=== PATIENT | male | born 1995 | race Caucasian/White ===

== ENCOUNTER 2024-02-08 20:20 | Emergency (ER) | payer SELFPAY ==
[2024-02-08 20:21] VITALS: BP 160/140; PULSE 96; RESP 21; TEMP 36.7; O2SAT 97; O2SAT 98; BMI 22.1
--- NOTE | 2024-02-08 20:33 | EX.ED.DYSGE1 ---
HPI <CHELSY Marquez - Last Filed: 02/08/24 21:46> History of Present Illness Chief Complaint: Allergic Reaction Narrative Narrative: Patient is a 28-year-old male with no significant medical history, uses marijuana occasionally last use today around 6 PM, was on a hike with his girlfriend. Patient was on the way back when he stepped on a hornets nest, got stung multiple times. Patient states he immediately started having itching sensations throughout his whole body, his girlfriend noticed his eyelids were swelling, he thought he felt short of breath, and he was able to call the ambulance. The ambulance on the way here provided them with 2 doses of IM epi, IV Solu-Medrol 125 mg, 25 mg of Benadryl. Patient also received some breathing treatments. On reevaluation, the patient arrives here shaky however is stable. PFSH <CHELSY Marquez - Last Filed: 02/08/24 21:46> PFS Medical History no medical history Home Medications ?Medication ?Instructions ?Recorded ?Last Taken ?Type epinephrine 0.3 mg/0.3 mL 0.3 mg (0.3 mL) IM Q4H PRN 02/08/24 Unknown Rx injection, auto-injector anaphylaxis #2 ea prednisone 50 mg tablet 50 mg PO DAILY #4 tabs 02/08/24 Unknown Rx Allergy/AdvReac Type Severity Reaction Status Date / Time bee venom protein (honey Allergy Severe Anaphylaxis Verified 02/08/24 20:27 bee) (bees) Family History no significant family his Surgical History no surgical history Social History Smoking Status: Current every day smoker tobacco type: cigarettes and e-cigarettes ROS <CHELSY Marquez - Last Filed: 02/08/24 21:46> ROS ED ROS Narrative Constitutional: Negative for fever, chills, weight loss, weakness. Positive for feeling shaky Eyes: Negative for vision loss, vision change, double vision ENT: Negative for any sore throat, ear pain, congestion Cardiovascular: Negative for any palpitations. Positive for chest tightness Respiratory: Negative for any cough, sputum production, hemoptysis,dyspnea on exertion, orthopnea. Positive for dyspnea Gastrointestinal: Negative for any abdominal pain, nausea, vomiting, diarrhea, constipation, blood in stool, blood in vomit : Negative for any urinary frequency, dysuria, retention, blood in urine Muscle skeletal: Negative for any neck pain, back pain Neurological: Negative for any headache, syncope, dizziness Skin: Negative for any rashes, itching, abrasions, lacerations Psychiatric: Negative for any depression, anxiety, stress, suicidal ideation, homicidal ideation Hematologic: Negative for any excessive bruising, easy bleeding EXAM <CHELSY Marquez - Last Filed: 02/08/24 21:46> Physical Exam Narrative Exam Narrative: Vital signs reviewed. Patient is alert and orient x 4. Patient is tachypneic, tachycardic however patient is able to speak complete sentences. HEET: Head normocephalic atraumatic, TMs clear bilaterally. Posterior pharynx is clear, dry mucous membranes. Nares clear bilaterally. Patient's oral airway is clear, negative for any stridor. Negative for obvious signs of angioedema Neck: Supple with no lymphadenopathy or tenderness. No signs of meningismus. Cardiac: Tachycardic rate no murmurs gallops or rubs, equal peripheral pulses bilaterally. Respiratory: Patient did have some expiratory wheezes in the right middle lobe.. No chest tenderness. Abdomen: Soft, nontender, nondistended. No abdominal bruit or pulsatile masses. No hepatosplenomegaly Extremities: No peripheral edema, no signs of gross trauma or deformity. Active full range of motion of all extremities. Neuro: Cranial nerves II through XII intact, no focal neurological deficits. Skin: Clean dry and intact with no rash, purpura, petechiae, vesicles or pustules. Backs/flank: No CVA tenderness, no midline spinal tenderness, no deformity. Psych: Normal mood and affect. No SI, HI or acute psychosis. Const Vital Signs: 02/08/24 20:21 02/08/24 21:12 02/08/24 21:31 Temperature 98.1 F Temperature Source Oral Pulse Rate 96 90 84 Respiratory Rate 21 H 16 18 Blood Pressure 160/140 H 112/65 Blood Pressure Mean 146 80 Pulse Ox 98 96 Oxygen Delivery Method Room Air Room Air 02/08/24 22:00 Temperature Temperature Source Pulse Rate 84 Respiratory Rate 15 Blood Pressure 104/68 Blood Pressure Mean 80 Pulse Ox 98 Oxygen Delivery Method <Dr. Surjit Luke MD - Last Filed: 02/08/24 22:25> Physical Exam Const Vital Signs: 02/08/24 20:21 02/08/24 21:12 02/08/24 21:31 Temperature 98.1 F Temperature Source Oral Pulse Rate 96 90 84 Respiratory Rate 21 H 16 18 Blood Pressure 160/140 H 112/65 Blood Pressure Mean 146 80 Pulse Ox 98 96 Oxygen Delivery Method Room Air Room Air 02/08/24 22:00 Temperature Temperature Source Pulse Rate 84 Respiratory Rate 15 Blood Pressure 104/68 Blood Pressure Mean 80 Pulse Ox 98 Oxygen Delivery Method [facility] <CHELSY Marquez - Last Filed: 02/08/24 21:46> [facility] Radiography Diagnostic Testing: Clinical Impression(s) from Imaging Studies Chest X-Ray 02/08/24 20:36 IMPRESSION: Chest with no acute disease. Electronically Signed: Jesus Alberto Spear MD at 21:14 EDT , Treatment and Re-Evaluation :: Differential diagnosis includes however is not limited to: Anaphylaxis, rebound allergic reaction, urticaria Patient appears to be in no obvious distress, vital signs are stable. Patient presents to the emergency department after having shortness of breath, allergic reaction to being stung by hornets/bees. Patient was given breathing treatments, EpiPen x 2, Solu-Medrol, Benadryl in the squad. On arrival, patient was in no obvious distress. Patient will be placed on the monitor, given IV fluids, IV Benadryl, IV Pepcid will be administered. Patient will be observed. 2139, patient's vital signs improved. Patient remains alert, vital signs are stable. Patient does not have any shortness of breath. He is tired secondary to the IV Benadryl. Patient will continue to be observed. When he is discharged, you placed on prednisone for 4 days as well as given an EpiPen 2 pack. He is instructed to follow-up with his PCP. <Dr. Surjit Luke MD - Last Filed: 02/08/24 22:25> [facility] Narrative Medical decision making narrative: I have personally performed a face to face assessment of the patient and have reviewed the ADAL Note. I performed a substantive portion of the visit including all aspects of the following. My howell findings include: History is stung multiple times by bees, started getting itchy all over and tightness in his throat and nausea. EMS gave Solu-Medrol and epinephrine x 2 doing better now. Exam is seen after obtained Benadryl and IV fluids. Feels better but very somnolent. Diffuse hyperemia without any edema, no tachycardia, breathing easily with no wheezing or stridor. No angioedema at this time. Medical Decison Making will continue to monitor until patient is more alert. Does not appear to need any further epinephrine at this time, length of stay has been 1 hour, continued to observe for further dosing. Another hour later, still somnolent from the diphenhydramine, normal vital signs, normal respirations and no anaphylactic symptoms. Does not require more epinephrine acutely; will discharge with a couple days of prednisone and EpiPen prescriptions. Discussed with significant other who is comfortable with that plan. Other additions or changes: [None] Radiography Diagnostic Testing: Clinical Impression(s) from Imaging Studies Chest X-Ray 02/08/24 20:36 IMPRESSION: Chest with no acute disease. 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
--- NOTE | 2024-02-08 20:36 | RAD_ITS ---
INDICATION: shortness of breath EXAMINATION/TECHNIQUE: X-RAY - XR Chest 1 View COMPARISON: None. Findings: Single frontal view of the chest. LUNG PARENCHYMA: No acute focal airspace disease or mass lesion. PLEURA: No pleural effusion. No pneumothorax. HEART/GREAT VESSELS: Cardiomediastinal silhouette is unremarkable. BONES: Osseous structures are unremarkable for age. RAD/Chest 1 View (Portable) IMPRESSION: Chest with no acute disease. Electronically Signed: Jesus Alberto Spear MD at 21:14 EDT ,
[2024-02-08] MEDS: 0.9% Normal Saline (1000mL) 1,000 ML 999 ML IV (20:42)
[2024-02-08] MEDS: DiphenhydrAMINE 50 MG/ML Syringe 25 MG IV (20:42)
[2024-02-08] MEDS: Famotidine 200 MG/20 ML MDV 20 MG in 0.9% Normal Saline (Pres. free 8 ML 300 MG IV (20:42)
[2024-02-08] MEDS: Ipratropium/Albuterol Sulfate 3 ML AMPUL.NEB INHALATION (21:11)
[2024-02-08 21:12] VITALS: PULSE 90; RESP 16
[2024-02-08 21:31] VITALS: BP 112/65; PULSE 84; RESP 18; O2SAT 96
[2024-02-08 22:00] VITALS: BP 104/68; PULSE 84; RESP 15; O2SAT 98
[2024-02-08 22:35] VITALS: BP 105/72; PULSE 71; RESP 18; TEMP 36.6; O2SAT 98
== END 2024-02-08 22:36 | disposition home or self-care (01) ==
PROVIDERS: Emergency Provider Emergency Medicine; Visit Provider Emergency Medicine
DX: T88.6XXA Anaphylactic reaction due to adverse effect of correct drug or medicament properly administered, initial encounter (principal); T50.Z95A Adverse effect of other vaccines and biological substances, initial encounter; F17.290 Nicotine dependence, other tobacco product, uncomplicated; F17.210 Nicotine dependence, cigarettes, uncomplicated
CPT/HCPCS: 71045; 94640; 96365; 96375; 96376; 99282; J7030; J3490